=== PATIENT | female | born 1935 | race Caucasian/White ===

== ENCOUNTER 2017-09-18 11:34 | Observation (INO) | payer OTHER ==
[~2017-09-18 11:34] MED LIST: ANAS1TAB7 PO; APIX5TAB PO; CYAN10009 PO; DIGO125T17 PO; FENT50PAT TD; FURO20TA4 PO; HYDR-4068 PO; LOSA100T29 PO; METO100T14 PO; OMEP20CA10 PO; PRAM0.129 PO; PRED50TA2 PO; SENN-107 PO; TRAM50TA4 PO; ZOLP10TA6 PO
[2017-09-18 12:21] LABS: BASOPHILS % (AUTO) 0.4 % (0.0-5.0); EOSINOPHILS % (AUTO) 1.4 % (0.0-8.0); HEMATOCRIT 37.6 % (36-48); LYMPHOCYTES % (AUTO) 24.1 % (21.0-51.0); MEAN CORPUSCULAR HEMOGLOBIN 29.8 pg (27.0-33.0); MEAN CORPUSCULAR HGB CONC 34.5 g/dL (32.0-36.0); MEAN CORPUSCULAR VOLUME 86.6 fL (79-99); NEUTROPHILS % (AUTO) 68.1 % (40.0-77.0); PLATELET COUNT (AUTO) 204 K/uL (130-400); RED BLOOD CELL COUNT(AUTO) 4.35 MIL/uL (4.00-5.50); RED CELL DISTRIBUTION WIDTH 14.8 % (11.0-15.5); WHITE BLOOD COUNT (AUTO) 8.4 K/uL (4.8-10.8)
[2017-09-18 12:46] LABS: CARBON DIOXIDE 28 mmol/L (21-32); CHLORIDE 105 mmol/L (101-111); CREATININE 0.8 mg/dL (0.5-1.5); GLOMERULAR FILTR. RATE CALC 73 mL/min (>60); GLUCOSE,RANDOM 108 mg/dL (70-105); POTASSIUM 4.3 mmol/L (3.5-5.1); SODIUM SERUM 140 mmol/L (136-145); UREA NITROGEN, BLOOD 17 mg/dL (7-18)
[2017-09-18 12:47] LABS: INR 0.96 (0.85-1.15); PARTIAL THROMBOPLASTIN TIME 28.8 SEC (26.3-35.5); PROTHROMBIN TIME 10.1 SEC (9.6-11.6)
[2017-09-18 12:57] LABS: ALANINE AMINOTRANSFERASE 23 U/L (12-78); ALBUMIN 3.5 g/dL (3.5-5.0); ASPARTATE AMINOTRANSFERASE 19 U/L (10-37); BILIRUBIN,TOTAL 0.4 mg/dL (0.2-1.0); CREATINE KINASE MB < 0.5 ng/mL (0.5-3.6); CREATINE KINASE, TOTAL 41 U/L (21-232); MYOGLOBIN 32 ng/mL (10-92); TOTAL PROTEIN, SERUM 6.7 g/dL (6.0-8.3)
[2017-09-18 15:46] LABS: APPEARANCE,URINE Clear (CLEAR); BILIRUBIN,URINE Negative (NEGATIVE); COLOR,URINE Yellow (YELLOW); GLUCOSE, URINE (UA) Negative (NEGATIVE); KETONES,URINE Negative (NEGATIVE); LEUKOCYTE ESTERASE ,URINE Trace (NEGATIVE); NITRATE,URINE Negative (NEGATIVE); OCCULT BLOOD,URINE Negative (NEGATIVE); PH,URINE 6.5 (5.0-8.0); PROTEIN,URINE Negative (NEGATIVE)
[2017-09-18 15:55] LABS: AMPHET/METH SCREEN,URINE NEGATIVE (NEGATIVE); BARBITURATE SCREEN, URINE NEGATIVE (NEGATIVE); BENZODIAZEPINES SCREEN,URINE NEGATIVE (NEGATIVE); CANNABINOID SCREEN,URINE NEGATIVE (NEGATIVE); COCAINE SCREEN,URINE NEGATIVE (NEGATIVE); OPIATE SCREEN,URINE NEGATIVE (NEGATIVE); PHENCYCLIDINE SCREEN,URINE NEGATIVE (NEGATIVE)
[2017-09-18] MEDS ORDERED: METOPROLOL TARTRATE 1 MG/ML 5ML VIAL IV ONE (15:57)
[2017-09-18 16:44] LABS: BACTERIA,URINE Rare /HPF (None Seen); RBC,URINE 0-1 /HPF (0-1); SQUAMOUS EPITHELIAL CELL,UR Rare /LPF (0-2); WBC,URINE 0-1 /HPF (0-1)
[2017-09-18] MEDS: CLONIDINE HCL 0.1 MG TABLET PO PRN (18:11)
[2017-09-18] MEDS ORDERED: [UNRECOGNIZED DRUG - CODE] PO (18:31)
[2017-09-18] MEDS ORDERED: METO-408 PO (18:31)
[2017-09-18] MEDS ORDERED: TRAMADOL HCL 50 MG TABLET PO PRN (18:45)
[2017-09-18] MEDS ORDERED: DIPHENHYDRAMINE HCL 25 MG CAPSULE PO PRN (19:15)
[2017-09-18] MEDS ORDERED: DOCUSATE SODIUM 100 MG CAP PO PRN (19:15)
[2017-09-18] MEDS ORDERED: ACETAMINOPHEN EXTRA STRENGTH 500 MG TABLET PO PRN (19:15)
[2017-09-18 20:00] VITALS: BP 128/53
[2017-09-18] MEDS: METOPROLOL TARTRATE 25 MG TAB PO SCH (20:28)
[2017-09-18] MEDS: SENNOSIDES 8.6 MG TABLET PO SCH (20:28)
[2017-09-18] MEDS: APIXABAN 5 MG TABLET PO SCH (20:28)
[2017-09-18] MEDS: DOCUSATE SODIUM 100 MG CAP PO SCH (20:28)
[2017-09-18] MEDS: PRAMIPEXOLE DI-HCL 0.25 MG TABLET PO SCH (20:28)
[2017-09-18 23:44] VITALS: BP 168/87
[2017-09-19] VITALS (7 sets, daily range): BP systolic 145–192; BP diastolic 61–99
[2017-09-19] MEDS ORDERED: DIGOXIN 125 MCG TABLET PO SCH (09:00)
[2017-09-19] MEDS: Anastrozole 1 MG TAB PO SCH (09:00)
[2017-09-19] MEDS: PRAMIPEXOLE DI-HCL 0.25 MG TABLET PO SCH ×2 (09:42→20:37)
[2017-09-19] MEDS: CYANOCOBALAMIN (VITAMIN B-12) 1,000 MCG TABLET PO SCH (09:42)
[2017-09-19] MEDS: APIXABAN 5 MG TABLET PO SCH ×2 (09:42→20:37)
[2017-09-19] MEDS: AMLODIPINE BESYLATE 5 MG TAB PO SCH (09:42)
[2017-09-19] MEDS: METOPROLOL TARTRATE 25 MG TAB PO SCH ×2 (09:42→20:37)
[2017-09-19] MEDS: LOSARTAN 100 MG TABLET PO SCH (09:44)
[2017-09-19] MEDS: DOCUSATE SODIUM 100 MG CAP PO SCH (20:37)
[2017-09-19] MEDS: SENNOSIDES 8.6 MG TABLET PO SCH (20:37)
[2017-09-20 03:54] VITALS: BP 172/68
[2017-09-20] MEDS: CLONIDINE HCL 0.1 MG TABLET PO PRN (03:59)
[2017-09-20 04:58] VITALS: BP 149/84
[2017-09-20] MEDS ORDERED: AMLO5TAB4 PO ×2 (07:51→07:52)
[2017-09-20] MEDS ORDERED: DIGO125T87 PO (07:55)
[2017-09-20 08:00] VITALS: BP 134/60
[2017-09-20] MEDS: APIXABAN 5 MG TABLET PO SCH (08:56)
[2017-09-20] MEDS: PRAMIPEXOLE DI-HCL 0.25 MG TABLET PO SCH (08:56)
[2017-09-20] MEDS: Anastrozole 1 MG TAB PO SCH (08:56)
[2017-09-20] MEDS: METOPROLOL TARTRATE 25 MG TAB PO SCH (08:56)
[2017-09-20] MEDS: LOSARTAN 100 MG TABLET PO SCH (08:56)
[2017-09-20] MEDS: CYANOCOBALAMIN (VITAMIN B-12) 1,000 MCG TABLET PO SCH (08:56)
[2017-09-20] MEDS: AMLODIPINE BESYLATE 5 MG TAB PO SCH (08:56)
[2017-09-20] MEDS ORDERED: DIGOXIN 125 MCG TABLET PO SCH (16:00)
== END 2017-09-20 09:20 | disposition home or self-care (01) ==
LOC: EDH 11:34 → EDHIP 16:38 → 3CH 17:17
PROVIDERS: ADMIT Internal Medicine; ATTEND Internal Medicine
DX: G45.9 Transient cerebral ischemic attack, unspecified (principal); I63.9 Cerebral infarction, unspecified; I48.91 Unspecified atrial fibrillation; I10 Essential (primary) hypertension; I25.10 Atherosclerotic heart disease of native coronary artery without angina pectoris; Z85.3 Personal history of malignant neoplasm of breast; Z85.72 Personal history of non-Hodgkin lymphomas; Z90.49 Acquired absence of other specified parts of digestive tract; Z95.5 Presence of coronary angioplasty implant and graft; Z79.01 Long term (current) use of anticoagulants; Z79.899 Other long term (current) drug therapy
CPT/HCPCS: 36415; 70450; 70544; 70547; 70551; 71045; 80053; 80305; 81001; 82550; 82553; 82948; 83874; 84484; 85025; 85610; 85730; 93005; 93306; 93880; 99291; G0378 ×41; J3490